=== PATIENT | female | born 2000 | race Caucasian/White ===

== ENCOUNTER 2019-10-29 14:59 | Emergency (ER) | payer BC ==
[~2019-10-29] VITALS: Ht 162.6 cm; Wt 98.0 kg
[2019-10-29 15:02] VITALS: BP 135/79
--- NOTE | 2019-10-29 15:26 | NUR ---
POINT TENDERNESS ON NECK OF PT. PT HAS BEEN PLACED IN C-COLLAR.
[2019-10-29] MEDS ORDERED: ketorolac trometh inj. 60 MG/2 ML VIAL IM ONE (15:40)
[2019-10-29] MEDS ORDERED: HYDROcodone/acetaminophen 5mg/325mg tablet PO ONE (15:40)
[2019-10-29] MEDS ORDERED: CYCL-1 PO (15:42)
[2019-10-29] MEDS ORDERED: HYDR-3965 PO (15:42)
== END 2019-10-29 16:14 | disposition home or self-care (01) ==
LOC: ER 15:01
DX: S16.1XXA Strain of muscle, fascia and tendon at neck level, initial encounter (principal); S09.90XA Unspecified injury of head, initial encounter; M25.512 Pain in left shoulder; Z88.1 Allergy status to other antibiotic agents; Z88.8 Allergy status to other drugs, medicaments and biological substances; Z79.899 Other long term (current) drug therapy; W22.8XXA Striking against or struck by other objects, initial encounter; Y93.89 Activity, other specified; Y92.89 Other specified places as the place of occurrence of the external cause; Y99.8 Other external cause status
CPT/HCPCS: 96372; 99283; J1885

== ENCOUNTER 2019-11-03 18:53 | Emergency (ER) | payer BC ==
[~2019-11-03] VITALS: Ht 162.6 cm; Wt 100.0 kg
[~2019-11-03 18:53] MED LIST: CYCL-1 PO; HYDR-3965 PO
[2019-11-03 19:03] VITALS: BP 135/89
--- NOTE | 2019-11-03 19:37 | NUR ---
Pt sitting on gurney conversing and laughing with copier field service technician.
--- NOTE | 2019-11-03 20:19 | NUR ---
Pt up to restroom, female raisin separator operator went into restroom with her. No acute distress observed.
[2019-11-03] MEDS ORDERED: ketorolac tromethamine 15mg/ml inj. IM ONE (20:45)
--- NOTE | 2019-11-03 20:53 | NUR ---
pt has 2 visitors at bedside. patient and visitors have been laughing and conversing throughout her stay. no distres noted.
[2019-11-03] MEDS ORDERED: DIPH25CA83 PO (21:04)
[2019-11-03] MEDS ORDERED: METO5TAB85 PO (21:04)
--- NOTE | 2019-11-03 21:12 | NUR ---
Pt playing on phone after being reminded that she needs to rest her eyes and to have "brain rest".
== END 2019-11-03 21:14 | disposition home or self-care (01) ==
LOC: ER 18:54
DX: F07.81 Postconcussional syndrome (principal); R11.2 Nausea with vomiting, unspecified; M54.2 Cervicalgia; Z88.0 Allergy status to penicillin; Z88.8 Allergy status to other drugs, medicaments and biological substances; Z79.899 Other long term (current) drug therapy
CPT/HCPCS: 96372; 99283; J1885

== ENCOUNTER 2020-09-05 03:55 | Emergency (ER) | payer BC ==
[~2020-09-05] VITALS: Ht 162.6 cm; Wt 94.5 kg
[~2020-09-05 03:55] MED LIST changes: +DIPH25CA83 PO; -HYDR-3965 PO; +METO5TAB85 PO
[2020-09-05 04:42] LABS: CLARITY,URINE CLEAR (Clear); COLOR,URINE YELLOW (Yellow); GLUCOSE, URINE NEGATIVE (Neg); KETONES,URINE NEGATIVE (Neg); LEUKOCYTE ESTERASE ,URINE NEGATIVE (Neg); NITRITES, URINE NEGATIVE (Neg); OCCULT BLOOD,URINE TRACE-INTACT (Neg); PROTEIN,URINE NEGATIVE (Neg); URINE HCG NEGATIVE (NEG); UROBILINOGEN,URINE 0.2 E.U/dL (0.2-1.0)
[2020-09-05 04:44] LABS: BASOPHILS % (AUTO) 0.3 % (0-1); EOSINOPHILS # (AUTO) 0.1 X10'3 (0-0.9); EOSINOPHILS % (AUTO) 1.1 % (0-6); HEMATOCRIT 41.7 % (35.0-45.0); HEMOGLOBIN 14.4 g/dl (12.0-16.0); LYMPHOCYTES # (AUTO) 3.4 X10'3 (1.1-4.8); LYMPHOCYTES % (AUTO) 34.3 % (21-51); MEAN CORPUSCULAR HEMOGLOBIN 30.7 PG (27.0-31.0); MEAN CORPUSCULAR HGB CONC 34.5 g/dL (33.0-36.5); MEAN PLATELET VOLUME 8.2 FL (7.4-10.4); MONOCYTES # (AUTO) 0.5 X10'3 (0-0.9); MONOCYTES % (AUTO) 5.3 % (2-12); NEUTROPHILS # (AUTO) 5.8 X10'3 (1.8-7.7); PLATELET COUNT 227 X10'3 (140-440); RED BLOOD COUNT 4.68 X10'6 (4.20-5.60); RED CELL DISTRIBUTION WIDTH 13.1 % (11.5-14.5); WHITE BLOOD COUNT 9.8 X10'3 (4.5-11.0)
[2020-09-05 04:46] LABS: UA COLLECTION TYPE CLN CATCH MIDSTREAM
[2020-09-05 04:50] LABS: SQUAMOUS EPITHELIAL CELL,UR MODERATE /LPF (FEW)
[2020-09-05 04:51] LABS: BACTERIA,URINE 2+ /HPF (Neg); RBC,URINE 0-2 /HPF (0-2); WBC,URINE 0-4 /HPF (0-4); YEAST FEW /HPF (NEGATIVE)
[2020-09-05 04:56] LABS: ALANINE AMINOTRANSFERASE 21 U/L (12-78); ALBUMIN 4.1 G/DL (3.4-5.0); ALKALINE PHOSPHATASE 88 IU/L (46-116); ANION GAP 10 (8-16); ASPARTATE AMINO TRANSFERASE 18 U/L (10-37); BILIRUBIN,TOTAL 0.3 MG/DL (0.1-1.0); BLOOD UREA NITROGEN 11 MG/DL (7-18); BUN/CREATININE RATIO 10.8 (6.6-38.0); CALCIUM 8.7 MG/DL (8.5-10.1); CHLORIDE 104 MMOL/L (99-107); CREATININE 1.02 MG/DL (0.40-0.90); GLUCOSE 99 MG/DL (70-104); LIPASE 83 U/L (73-393); POTASSIUM 3.3 MMOL/L (3.5-5.1); SODIUM 141 MMOL/L (135-145); TOTAL PROTEIN 8.2 G/DL (6.4-8.2); eGFR 68 ML/MIN
[2020-09-05 05:38] VITALS: BP 119/74
[2020-09-05] MEDS ORDERED: PANT-47 PO (05:44)
[2020-09-05] MEDS ORDERED: pantoprazole 40 MG vial IV ONE (05:45)
[2020-09-05] MEDS ORDERED: normal saline 1000ML IV soln IVB ONE (05:45)
[2020-09-05] MEDS ORDERED: ondansetron/PF 4mg/2ml inj IV ONE (05:45)
== END 2020-09-05 06:26 | disposition home or self-care (01) ==
LOC: ER 03:57
DX: R10.11 Right upper quadrant pain (principal); R19.7 Diarrhea, unspecified; I10 Essential (primary) hypertension; F17.200 Nicotine dependence, unspecified, uncomplicated; Z72.89 Other problems related to lifestyle; Z79.2 Long term (current) use of antibiotics; Z88.8 Allergy status to other drugs, medicaments and biological substances; Z79.899 Other long term (current) drug therapy
CPT/HCPCS: 36415; 80053; 81001; 81025; 83690; 85025; 96361; 96374; 96375; 99284; C9113; J2405; J7030